=== PATIENT | male | born 1980 | race Caucasian/White ===

== ENCOUNTER 2020-03-12 06:52 | Emergency (ER) | payer OTHER ==
[~2020-03-12] VITALS: Ht 154.9 cm; Wt 108.9 kg
[2020-03-12] MEDS ORDERED: [UNRECOGNIZED DRUG - OTHER] (07:01)
[2020-03-12] MEDS ORDERED: PROZAC20 M1 PO (07:02)
[2020-03-12] MEDS ORDERED: ATARAX (07:02)
[2020-03-12] MEDS ORDERED: TRAMADOL 50 MG50 MG PO (08:13)
[2020-03-12] MEDS ORDERED: NAPROSYN500 MG PO (08:13)
[2020-03-12 08:38] VITALS: BP 135/85
== END 2020-03-12 08:38 ==
LOC: ER 06:52
DX: S63.592A Other specified sprain of left wrist, initial encounter (principal); F17.210 Nicotine dependence, cigarettes, uncomplicated; W18.39XA Other fall on same level, initial encounter; Y93.89 Activity, other specified; Y92.89 Other specified places as the place of occurrence of the external cause; Y99.0 Civilian activity done for income or pay

== ENCOUNTER 2020-06-25 20:32 | Emergency (ER) | payer OTHER ==
[~2020-06-25] VITALS: Ht 154.9 cm; Wt 106.6 kg
[~2020-06-25 20:32] MED LIST: ATARAX; NAPROSYN500 MG PO; PROZAC20 M1 PO; TRAMADOL 50 MG50 MG PO; [UNRECOGNIZED DRUG - OTHER]
[2020-06-25 21:00] VITALS: BP 138/89
[2020-06-25] MEDS ORDERED: TIZANIDINE HCL4 M1 PO (21:05)
== END 2020-06-25 22:36 | disposition home or self-care (01) ==
LOC: ER 20:32
DX: S82.301D Unspecified fracture of lower end of right tibia, subsequent encounter for closed fracture with routine healing (principal); F17.210 Nicotine dependence, cigarettes, uncomplicated; Z98.890 Other specified postprocedural states; Z79.899 Other long term (current) drug therapy; W11.XXXD Fall on and from ladder, subsequent encounter